=== PATIENT | female | born 1970 | race Two or more races ===

== ENCOUNTER 2024-11-20 20:53 | Emergency (ER) | payer OTHER ==
[~2024-11-20] VITALS: Ht 167.6 cm; Wt 68.2 kg
[2024-11-20] MEDS: OxyCODONE HCL/ACETAMINOPHEN 5-325 MG TABLET PO ONE (23:38)
[2024-11-20] MEDS: IBUPROFEN 600 MG TABLET PO ONE (23:38)
[2024-11-21] MEDS ORDERED: PERCT PO (00:03)
[2024-11-21] MEDS ORDERED: IBUP-1492 PO (00:03)
[2024-11-21 00:30] VITALS: BP 132/88; PULSE 88; RESP 16; TEMP 98.3; O2SAT 98
== END 2024-11-21 00:54 | disposition home or self-care (01) ==
LOC: EMS 20:53
DX: S82.62XA Displaced fracture of lateral malleolus of left fibula, initial encounter for closed fracture (principal); X50.1XXA Overexertion from prolonged static or awkward postures, initial encounter; Y93.89 Activity, other specified; Y92.89 Other specified places as the place of occurrence of the external cause; Y99.8 Other external cause status
CPT/HCPCS: 99284